=== PATIENT | female | born 1975 | race Caucasian/White ===

== ENCOUNTER → 2017-01-14 | Outpatient (CLI) | payer OTHER ==
[~2017-01-14] MED LIST: BACTRIM DS 8001 TA1 PO; CIPROFLOXACIN500 MG PO; CLINDAMYCIN HC300 MG PO; DAYPRO600 M1 PO; FLEXERIL10 MG PO; HYDROCODONE BIT1 T11 PO; MOTRIN600 MG PO; MOTRIN800 MG PO; NORCO 325 MG-51 TAB PO; PREDNICOT20 MG PO; PROTONIX40 MG PO; ROBAXIN750 MG PO; TRAMADOL HCL50 MG PO; ULTRAM100 MG PO
== END | disposition home or self-care (01) ==
LOC: MRI 09:46
DX: M48.06 Spinal stenosis, lumbar region (principal); M47.896 Other spondylosis, lumbar region; M12.88 Other specific arthropathies, not elsewhere classified, other specified site

== ENCOUNTER → 2025-06-08 | Outpatient (CLI) | payer OTHER ==
[2025-06-08 10:21] LABS: MEAN CELL VOLUME 97.3 fl (81.0-99.0); MEAN CORPUSCULAR HGB 32.5 pg (27.0-31.0); MEAN PLATELET VOLUME 10.8 fl (9.6-12.3); NUCLEATED RED BLOOD CELL 0.0 % (0.0-0.0); NUCLEATED RED BLOOD CELL 0.0 10*3/uL (0.0-0.0); PLATELET COUNT AUTOMATED 244.0 10*3/uL (130-400); RED CELL DISTRI WIDTH 13.2 % (0-14.5)
[2025-06-08 10:46] LABS: BUN 14 mg/dl (9-23); FREE T4 1.19 ng/dl (0.89-1.76); LDL CHOLESTEROL 107 mg/dL (9-159); SGPT/ALT 15 U/L (5-49)
[2025-06-08 11:15] LABS: VITAMIN D, 25-HYDROXY 29.7 ng/mL (30-100)
== END | disposition home or self-care (01) ==
LOC: LAB 10:00
PROVIDERS: ATTEND Family Medicine
DX: E78.00 Pure hypercholesterolemia, unspecified (principal); E55.9 Vitamin D deficiency, unspecified; R53.83 Other fatigue

== ENCOUNTER → 2025-07-12 | Outpatient (CLI) | payer OTHER | END | disposition home or self-care (01) | LOC: MAMMO 07-05 02:33 | PROVIDERS: ATTEND Family Medicine | DX: Z12.31 Encounter for screening mammogram for malignant neoplasm of breast (principal); Z01.419 Encounter for gynecological examination (general) (routine) without abnormal findings ==

== ENCOUNTER → 2025-10-16 | Outpatient (CLI) | payer OTHER ==
[2025-10-16 12:48] LABS: BUN 11 mg/dl (9-23); LDL CHOLESTEROL 96 mg/dL (9-159); SGPT/ALT 20 U/L (5-49)
== END | disposition home or self-care (01) ==
LOC: LAB 01:55
PROVIDERS: ATTEND Family Medicine
DX: E74.9 Disorder of carbohydrate metabolism, unspecified (principal); E78.00 Pure hypercholesterolemia, unspecified